=== PATIENT | female | born 1990 | race African-American/Black ===

== ENCOUNTER 2021-12-21 08:02 | Emergency (ER) | payer OTHER ==
[2021-12-21] MEDS ORDERED: HYDROcodone/Acetaminophen 5/325 mg Tablet ONE (08:26)
== END 2021-12-21 08:32 | disposition home or self-care (01) ==
LOC: CSHERS 08:02
DX: K04.7 Periapical abscess without sinus (principal); F17.210 Nicotine dependence, cigarettes, uncomplicated
CPT/HCPCS: 99282

== ENCOUNTER → 2022-10-18 | Day surgery (SDC) | payer OTHER ==
[~2022-10-18] MED LIST: Iron Sucrose Complex 500 MG in Sodium Chloride 0.9% 250 ML 250 ML IVPB SCH
== END ==
LOC: CSHLAB 13:18
PROVIDERS: ATTEND Obstetrics & Gynecology
DX: O99.019 Anemia complicating pregnancy, unspecified trimester (principal); D64.9 Anemia, unspecified
CPT/HCPCS: J1756; J7050

== ENCOUNTER 2022-10-21 22:28 | Inpatient (IN) | payer OTHER ==
[~2022-10-21 22:28] MED LIST changes: +Bupivacaine/Epinephrine 0.25% 30 ML VIAL ONE; -Iron Sucrose Complex 500 MG in Sodium Chloride 0.9% 250 ML 250 ML IVPB SCH
[2022-10-21 22:52] VITALS: BMI 26.4
[2022-10-21] MEDS ORDERED: hydrALAZINE 20 MG/ML VIAL SLOW IVP PRN ×2 (23:22→23:30)
[2022-10-21] MEDS ORDERED: Methylergonovine 0.2 MG/ML VIAL IM PRN (23:27)
[2022-10-21] MEDS ORDERED: Misoprostol 200 MCG TAB PR PRN (23:27)
[2022-10-21] MEDS ORDERED: Ibuprofen 800 MG TAB PO PRN (23:27)
[2022-10-21] MEDS ORDERED: Lidocaine 1% (PF) 30 ML VIAL SC PRN (23:27)
[2022-10-21] MEDS ORDERED: Carboprost 250 MCG/ML AMP IM PRN (23:27)
[2022-10-21 23:30] LABS: Fetal Membranes Rupture No Membranes Rupture (No Rupture)
[2022-10-21] MEDS ORDERED: Lactated Ringer's 1,000 ML IV SCH (23:30)
[2022-10-21] MEDS ORDERED: Docusate 100 MG CAP PO PRN (23:30)
[2022-10-21] MEDS ORDERED: Acetaminophen 500 MG TAB PO PRN (23:30)
[2022-10-21] MEDS ORDERED: Promethazine HCl 25 MG/ML VIAL IM PRN (23:30)
[2022-10-21] MEDS ORDERED: NS w/ Oxytocin 30 units 500 ML IV SCH ×2 (23:30)
[2022-10-21] MEDS ORDERED: Penicillin G Potassium 5 MILL.UNITS in Sodium Chloride 0.9% 100 ML IVPB SCH (23:30)
[2022-10-21] MEDS ORDERED: Ondansetron PF 4 MG/2 ML Vial IVP PRN (23:30)
[2022-10-21] MEDS ORDERED: Fentanyl 2 mcg/Bup 0.1% Cadd 100 ML ONE (23:42)
[2022-10-21 23:51] LABS: Hemoglobin 8.5 g/dL (12.0-15.5); Mean Corpuscular HGB CONC 29.8 g/dL (32.0-36.0); Mean Corpuscular Hemoglobin 21.7 pg (27.0-33.0); Mean Corpuscular Volume 72.9 fl (81.6-98.3); Mean Platelet Volume 11.7 fl (7.4-10.4); Platelet Count 304 10x3/uL (150-450); RBC Distribution Width 19.4 % (11.5-14.5); Red Blood Cell (RBC) Count 3.91 10x6/uL (3.90-5.03); White Blood Cell (WBC) Count 15.7 10x3/uL (3.5-10.5)
[2022-10-21] MEDS ORDERED: Betamet Acet/Betamet Na Ph 30 MG/5 ML VIAL IM SCH (23:59)
[2022-10-22 00:26] LABS: Syphilis Antibody Nonreactive (Nonreactive); Syphilis Antibody Index 0.07 S/CO (<1.00 Non-Reactive)
[2022-10-22 00:27] LABS: HBSAg Index 0.12 S/CO (0-0.99); Hep B Surf Ag Non-Reactive S/CO (NonReactive)
[2022-10-22 00:34] LABS: SARS-CoV-2 NAA Rapid Test Not Detected (NotDetected)
[2022-10-22] MEDS ORDERED: Moisturizing Cream (Eucerin) 113 GM JAR TOP PRN (00:36)
[2022-10-22] MEDS ORDERED: Promethazine HCl 25 MG/ML VIAL IM PRN (00:36)
[2022-10-22] MEDS ORDERED: diphenhydrAMINE 50 MG/ML VIAL IVP PRN (00:36)
[2022-10-22] MEDS ORDERED: ePHEDrine Sulfate 50 MG/10 ML VIAL SLOW IVP PRN (00:36)
[2022-10-22] MEDS ORDERED: Ondansetron PF 4 MG/2 ML Vial IVP PRN ×2 (00:36→02:48)
[2022-10-22] MEDS ORDERED: Naloxone HCl 0.4 mg/ml Vial IVP PRN ×2 (00:36)
[2022-10-22] MEDS ORDERED: Acetaminophen 325 MG TAB PO PRN (00:36)
[2022-10-22] MEDS ORDERED: Lactated Ringer's 500 ML IV PRN (00:36)
[2022-10-22] MEDS ORDERED: Communication Order-Pharmacy FS SCH (00:45)
[2022-10-22] MEDS ORDERED: Fentanyl 2 mcg/Bupivacaine 0.1% Cassette 100 ML EPIDURAL SCH (00:45)
[2022-10-22] MEDS ORDERED: Milk Of Magnesia 30 ML UDCUP PO PRN (02:48)
[2022-10-22] MEDS ORDERED: Bisacodyl 10 MG SUPP PR PRN (02:48)
[2022-10-22] MEDS ORDERED: Benzocaine-Menthol 82.5 ML CAN TOP PRN (02:48)
[2022-10-22] MEDS ORDERED: NS w/ Oxytocin 30 units 500 ML IV SCH (02:48)
[2022-10-22] MEDS ORDERED: Methylergonovine 0.2 MG/ML VIAL IM PRN (02:48)
[2022-10-22] MEDS ORDERED: Misoprostol 200 MCG TAB VAG PRN (02:48)
[2022-10-22] MEDS ORDERED: hydrALAZINE 20 MG/ML VIAL SLOW IVP PRN (02:48)
[2022-10-22] MEDS ORDERED: Lanolin Ointment 7 GM TUBE TOP PRN (02:48)
[2022-10-22] MEDS ORDERED: Penicillin G 2.5 MILL.units 2.5 MILL.UNITS in Premix Bag 1 BAG IVPB SCH (03:30)
[2022-10-22] MEDS: Ibuprofen 800 MG TAB PO SCH ×3 (05:04→21:45)
[2022-10-22 07:10] LABS: Mean Corpuscular HGB CONC 29.9 g/dL (32.0-36.0); Mean Corpuscular Hemoglobin 21.7 pg (27.0-33.0); Mean Corpuscular Volume 72.6 fl (81.6-98.3); Mean Platelet Volume 11.3 fl (7.4-10.4); Platelet Count 263 10x3/uL (150-450); RBC Distribution Width 18.4 % (11.5-14.5); Red Blood Cell (RBC) Count 3.69 10x6/uL (3.90-5.03); White Blood Cell (WBC) Count 20.5 10x3/uL (3.5-10.5)
[2022-10-22 07:47] LABS: MDiff Complete? YES
[2022-10-22 07:49] LABS: Lymphocytes 11 % (21-51); Monocytes 9 % (0-10); Neutrophil 79 % (42-75); Nucleated RBC 3 % (0)
[2022-10-22 07:50] LABS: Hypochromia MODERATE=16-30 cells (100X) (0-5/hpf); Polychromasia MODERATE = 3-4 cells (100X) (0-2/hpf)
[2022-10-22 07:51] LABS: Elliptocytes SLIGHT = 2-5 cells (100X) (0-1/hpf); Platelet Morphology Comment Appears Adequate; Schistocytes SLIGHT = 2-5 cells (100X) (0-1/hpf)
[2022-10-22] MEDS: Prenatal Vitamin 1 TAB PO SCH (08:45)
[2022-10-22] MEDS: Ferrous Sulfate 325 MG TAB PO SCH ×2 (08:45→17:11)
[2022-10-22] MEDS: Docusate 100 MG CAP PO SCH ×2 (08:45→21:45)
[2022-10-23] MEDS: Ibuprofen 800 MG TAB PO SCH (06:07)
[2022-10-23] MEDS: Docusate 100 MG CAP PO SCH (09:22)
[2022-10-23] MEDS: Prenatal Vitamin 1 TAB PO SCH (09:22)
[2022-10-23] MEDS: Ferrous Sulfate 325 MG TAB PO SCH (09:23)
[2022-10-23 11:51] VITALS: BP 120/74; TEMP 98
== END 2022-10-23 13:20 | disposition home or self-care (01) | DRG 807 ==
LOC: CSHLD/OP 22:28 → CSHLD 23:10 → CSHPP 10-22 03:11
PROVIDERS: ADMIT Obstetrics & Gynecology; ATTEND Obstetrics & Gynecology
PROC: 10E0XZZ Delivery of Products of Conception, External Approach (ICD-10-PCS; principal; 2022-10-22)
DX: O60.14X0 Preterm labor third trimester with preterm delivery third trimester, not applicable or unspecified (principal); Z37.0 Single live birth; Z3A.33 33 weeks gestation of pregnancy; Z20.822 Contact with and (suspected) exposure to COVID-19; O99.02 Anemia complicating childbirth; D50.9 Iron deficiency anemia, unspecified; F17.210 Nicotine dependence, cigarettes, uncomplicated; O99.334 Smoking (tobacco) complicating childbirth
CPT/HCPCS: 36415; 84112; 85025; 85027; 86780; 86850; 86900; 86901; 87340; 88307; 99285; J0702; J2540; J3490; J7120; U0002